=== PATIENT | female | born 1990 | race Caucasian/White ===

== ENCOUNTER 2021-07-09 08:37 | Emergency (ER) | payer MEDICAID ==
[~2021-07-09] VITALS: Ht 154.9 cm; Wt 65.0 kg
[2021-07-09 08:52] VITALS: BP 103/74
[2021-07-09 10:45] LABS: BASOPHILS % (AUTO) 0.4 % (0-1); EOSINOPHILS % (AUTO) 0.4 % (0-6); HEMATOCRIT 46.4 % (35.0-45.0); HEMOGLOBIN 15.6 g/dl (12.0-16.0); LYMPHOCYTES # (AUTO) 1.3 X10'3 (1.1-4.8); LYMPHOCYTES % (AUTO) 18.5 % (21-51); MEAN CORPUSCULAR HEMOGLOBIN 30.4 PG (27.0-31.0); MEAN CORPUSCULAR HGB CONC 33.6 g/dL (33.0-36.5); MEAN CORPUSCULAR VOLUME 90.4 FL (78-98); MEAN PLATELET VOLUME 9.6 FL (7.4-10.4); MONOCYTES # (AUTO) 0.3 X10'3 (0-0.9); MONOCYTES % (AUTO) 4.5 % (2-12); NEUTROPHILS # (AUTO) 5.4 X10'3 (1.8-7.7); NEUTROPHILS % (AUTO) 76.2 % (42-75); PLATELET COUNT 219 X10'3 (140-440); RED BLOOD COUNT 5.13 X10'6 (4.20-5.60); RED CELL DISTRIBUTION WIDTH 12.5 % (11.5-14.5); WHITE BLOOD COUNT 7.1 X10'3 (4.5-11.0)
[2021-07-09 10:53] LABS: ALANINE AMINOTRANSFERASE 44 U/L (12-78); ALBUMIN 3.8 G/DL (3.4-5.0); ALKALINE PHOSPHATASE 65 IU/L (46-116); ANION GAP 10 (8-16); ASPARTATE AMINO TRANSFERASE 21 U/L (10-37); BILIRUBIN,TOTAL 0.2 MG/DL (0.1-1.0); BLOOD UREA NITROGEN 7 MG/DL (7-18); BUN/CREATININE RATIO 10.8 (6.6-38.0); CALCIUM 8.7 MG/DL (8.5-10.1); CHLORIDE 107 MMOL/L (99-107); CREATININE 0.65 MG/DL (0.40-0.90); GLUCOSE 114 MG/DL (70-104); POTASSIUM 4.1 MMOL/L (3.5-5.1); SODIUM 141 MMOL/L (135-145); TOTAL CARBON DIOXIDE 23.8 MMOL/L (24-32); TOTAL PROTEIN 7.5 G/DL (6.4-8.2); eGFR > 90 ML/MIN
[2021-07-09 10:55] LABS: D-DIMER < 0.19 MG/L FEU (0-0.50)
== END 2021-07-09 13:30 | disposition home or self-care (01) ==
LOC: ER 08:37
DX: J06.9 Acute upper respiratory infection, unspecified (principal); Z20.822 Contact with and (suspected) exposure to COVID-19; R06.89 Other abnormalities of breathing; I26.99 Other pulmonary embolism without acute cor pulmonale; Z88.6 Allergy status to analgesic agent; Z88.8 Allergy status to other drugs, medicaments and biological substances
CPT/HCPCS: 36415; 71045; 80053; 83735; 83880; 84484; 85025; 85379; 87635; 93005; 99285; C9803

== ENCOUNTER 2022-03-09 10:29 | Emergency (ER) | payer MEDICAID ==
[~2022-03-09] VITALS: Ht 152.4 cm; Wt 68.2 kg
[2022-03-09 10:44] VITALS: BP 108/70
[2022-03-09] MEDS ORDERED: acetaminophen 325mg tablet PO ONE (12:05)
--- NOTE | 2022-03-09 12:18 | NUR ---
pt refused tylenol. pt states i need something way stronger. informed
--- NOTE | 2022-03-09 12:53 | NUR ---
Mali MCKNIGHT aware of patients refusal for tylenol. PA in room with patient now.
== END 2022-03-09 14:20 | disposition home or self-care (01) ==
LOC: ER 10:29
DX: M25.562 Pain in left knee (principal); R22.42 Localized swelling, mass and lump, left lower limb; Z87.01 Personal history of pneumonia (recurrent); Z88.6 Allergy status to analgesic agent; Z91.018 Allergy to other foods; Z88.8 Allergy status to other drugs, medicaments and biological substances
CPT/HCPCS: 29505; 73564; 99283